=== PATIENT | female | born 2000 | race Caucasian/White ===

== ENCOUNTER 2024-02-04 07:26 | Inpatient (IN) ==
[2024-02-04 08:54] LABS: Amphetamines+Metham, Urine Neg (Neg); Barbiturates, Urine Neg (Neg); Benzodiazepine, Urine Neg (Neg); Cocaine, Urine Neg (Neg); Fentanyl, Urine Neg (Neg); MDMA (Ecstacy), Urine Neg (Neg); Marijuana, Urine Neg (Neg); Methadone, Urine Neg (Neg); Opiate, Urine Neg (Neg); Phencyclidine, Urine Neg (Neg)
--- NOTE | 2024-02-04 10:23 | History & Physical Report ---
Date of Service February 04, 2024 Assessment & Plan (1) Prolong rupt membran-unspec: Plan: Observe the patient for any cervical change indicating active labor. History of Present Illness Chief Complaint: Intrauterine 38 weeks 5 days gestation. Gush of amniotic fluid. Primary Care Provider: NO PCP Patient is a 23-year-old 2 para 1. Patient is in good general health. Patient is on no chronic pills or medications. She does use medical marijuana. has been well dated with a first trimester ultrasound. due date is 02/13/2024. She has had no problems. First child was delivered 2021 female 7 pounds 10 ounces. She delivered on her due date at 40 w eeks. Spontaneous vaginal delivery no problems. Patient states last time she was checked at [place] she was 3 cm dilated. Patient also states that she progressed rapidly with her first . Patient states she began having contractions about 5 AM the day of admissions. About 6 AM she noticed what she thought was a gush of fluid. Called the hospital was told to come to maternity for evaluation. Patient does not have any vaginal bleeding. Allergies Allergy/AdvReac Type Severity Reaction Status Date / Time No Known Allergies Allergy Unverified 02/04/24 07:44 Home Medications Medication Instructions Recorded Confirmed Type famotidine 20 mg tablet (Pepcid) 20 mg PO DAILY 02/04/24 02/04/24 History vits no.124-ferrous fum 1 tab PO DAILY 02/04/24 02/04/24 History 27 mg iron-folic acid 800 mcg tablet ( Vitamin) Past Med/Surg History Problem List (Updated 02/04/24 @ 10:22 by Johnson Arredondo MD) Prolong rupt membran-unspec Medical History (Updated 02/04/24 @ 10:22 by Johnson Arredondo MD) Depression Anxiety Asthma Surgical History (Updated 02/04/24 @ 07:44 by Bridgette Carpenter RN) [place] teeth removed Social History Smoking Status: Former smoker Hx Alcohol Use: Yes (last drank a "sip" on ) Alcohol type: wine Hx Substance Use: Yes Last Used Substance: Days (ago) Last Used Substance Other:: 02/02/24 Preferred Language: Ivorian Communication Ability: Effective 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 Heart had a regular rhythm S1 and S2 were normal. Lungs are clear to auscultation percussion. Trachea was midline. There was no cervical adenopathy. No calf tenderness noted. Abdomen was soft nontender consistent with a term size . Pelvic exam cervix was posterior 4 cm dilated. Vertex presentation. 60% effaced and soft. -1 to -2 station. Results & Data Results & Data Vital Signs (Past 12 Hours) Vital Signs Temp Pulse Resp BP 02/04/24 09:30 18 02/04/24 09:30 18 02/04/24 09:00 20 02/04/24 09:00 20 02/04/24 08:00 20 02/04/24 08:00 36.6 C 20 02/04/24 07:46 36.6 C 20 02/04/24 07:43 87 128/71
[2024-02-04] MEDS ORDERED: LIDOCAINE 1% LOCAL 20 ML VIAL INFIL PRN (14:11)
[2024-02-04] MEDS ORDERED: ACETAMINOPHEN 500 MG TAB PO PRN (14:11)
[2024-02-04] MEDS ORDERED: OXYTOCIN 30 UNITS/NSS 30 UNITS/500 ML BAG IV PRN ×2 (14:11→23:21)
[2024-02-04] MEDS ORDERED: CALCIUM CARBONATE 500 MG CHEWABLE TAB PO PRN (14:11)
[2024-02-04 14:50] LABS: Hematocrit (blood only) 33.6 % (37.0-47.0); Hemoglobin 11.4 g/dl (12.0-16.0); Mean Corpuscular Hemoglobin 30.2 pg (25.0-34.0); Mean Corpuscular Hgb Conc 33.9 g/dL (32.0-36.0); Mean Corpuscular Volume 89.1 fL (80.0-100.0); Platelet Count 244 K/uL (130-400); RDW Coefficient of Variation 14.1 % (11.5-14.5); RDW Standard Deviation 45.3 fL (36.4-46.3); Red Blood Count 3.77 M/uL (4.20-5.40); White Blood Count 14.26 K/ul (4.8-10.8)
[2024-02-04] MEDS: OXYTOCIN 30 UNITS/NSS 30 UNITS/500 ML BAG IV PRN (15:09)
[2024-02-04] MEDS: LACTATED RINGER'S 1,000 ML IV SCH (15:11)
[2024-02-04] MEDS: fentANYL 2 MCG/ML BUPIVacaine 0.125%-NSS 100ML BAG ONE (19:21)
[2024-02-04] MEDS: BUPIVACAINE 0.25% PF 30 ML VIAL ONE (19:22)
[2024-02-04] MEDS: LIDOCAINE 2%/EPINEPHRINE 1:200,000 20 ML PF ONE (19:22)
--- NOTE | 2024-02-04 19:27 | Anesthesiology Consultation ---
Date of Service February 04, 2024 Assessment & Plan Chart Review Chart Review: Acceptable Risk for Labor Epidural Consults Requested none History Height/Weight Height: 5 ft 6 in Weight: 92.533 kg Allergies Allergy/AdvReac Type Severity Reaction Status Date / Time No Known Allergies Allergy Unverified 02/04/24 07:44 Medications Home Medications Medication Instructions Recorded Confirmed Last Taken famotidine 20 mg tablet (Pepcid) 20 mg PO DAILY 02/04/24 02/04/24 Unknown vits no.124-ferrous fum 1 tab PO DAILY 02/04/24 02/04/24 Unknown 27 mg iron-folic acid 800 mcg tablet ( Vitamin) Active Medications Generic Name Dose Route Start Last Admin Trade Name Freq PRN Reason Stop Dose Admin Oxytocin 30 units in 500 mls @ 8 mls/hr 02/04/24 14:13 02/04/24 16:50 Pitocin 30 Units/Nss IV 02/06/24 14:12 0.48 units/hr .Q24H PRN 8 mls/hr Labor Induction/Augmentation Titration Protocol 0.48 UNITS/HR Lactated Ringer's 1,000 mls @ 50 mls/hr 02/04/24 15:15 02/04/24 15:11 Lr IV 02/05/24 15:14 50 mls/hr .Q20H SALINA Administration Past Medical History Medical History (Updated 02/04/24 @ 10:22 by Johnson Arredondo MD) Depression Anxiety Asthma Past Surgical History Surgical History (Updated 02/04/24 @ 07:44 by Bridgette Carpenter RN) [place] teeth removed Social History Smoking Status: Former smoker Hx Alcohol Use: Yes (last drank a "sip" on Thanksgiving) Alcohol type: wine Alcohol Intake Frequency Comment: wine on Thanksgiving Hx Substance Use: Yes substance use type: marijuana Last Used Substance: Days (ago) Last Used Substance Other:: 02/02/24 Physical Exam Vital Signs Last Vital Signs Temp 36.6 C 02/04/24 12:54 Pulse 111 H 02/04/24 19:24 Resp 20 02/04/24 18:30 BP 107/57 L 02/04/24 19:24 Pulse Ox 99 02/04/24 19:23 Testing Laboratory Results 02/04/24 14:30
[2024-02-04] MEDS ORDERED: NALOXONE HCL 1 MG in SODIUM CHLORIDE 0.9% 1,000 ML IV PRN (19:29)
[2024-02-04] MEDS ORDERED: fentaNYL citrate PF 100 MCG/2 ML VIAL EPI PRN (19:29)
[2024-02-04] MEDS ORDERED: LIDOCAINE 2% MPF LOCAL 5 ML VIAL EPI PRN (19:29)
[2024-02-04] MEDS ORDERED: ROPIVACAINE 0.5% PF 5 MG/ML 20 ML VIAL EPI PRN (19:29)
[2024-02-04] MEDS ORDERED: diphenhydrAMINE 50 MG/ML VIAL IV PRN (19:29)
[2024-02-04] MEDS ORDERED: ePHEDrine sulfate 50 MG/ML AMP IV PRN (19:29)
[2024-02-04] MEDS ORDERED: NALBUPHINE HCL INJ 10 MG/ML AMP IV PRN (19:29)
[2024-02-04] MEDS ORDERED: NALOXONE HCL 0.4 MG/1 ML VIAL/CARP IV PRN (19:29)
[2024-02-04] MEDS ORDERED: fentANYL 2 MCG/ML BUPIVacaine 0.125%-NSS 100ML BAG EPI PRN (19:29)
[2024-02-04] MEDS ORDERED: BUPIVACAINE 0.25% PF 30 ML VIAL EPI PRN (19:29)
[2024-02-04] MEDS ORDERED: SODIUM CHLORIDE 0.9% PF INJ 10 ML VIAL EPI PRN (19:29)
[2024-02-04] MEDS: BUPIVACAINE 0.25% PF 30 ML VIAL EPI STA (20:24)
[2024-02-04] MEDS: fentaNYL citrate PF 100 MCG/2 ML VIAL ONE (20:24)
[2024-02-04] MEDS: SODIUM CHLORIDE 0.9% PF INJ 10 ML VIAL EPI STA (20:26)
[2024-02-04] MEDS: SODIUM CHLORIDE 0.9% PF INJ 10 ML VIAL ONE (20:26)
[2024-02-04] MEDS: fentaNYL citrate PF 100 MCG/2 ML VIAL EPI STA (20:26)
[2024-02-04] MEDS: LIDOCAINE 2%/EPINEPHRINE 1:200,000 20 ML PF EPI STA (20:26)
[2024-02-04] MEDS: METHYLERGONOVINE MALEATE 0.2 MG/ML AMP IM ONE (23:16)
[2024-02-04] MEDS ORDERED: HYDROCORTISONE ACETATE 25 MG SUPP PR PRN (23:21)
[2024-02-04] MEDS ORDERED: BENZOCAINE 20% SPRY 85 APPLN/85 GM CAN EXT PRN (23:21)
[2024-02-04] MEDS ORDERED: oxyCODONE/ACETAMINOPHEN 5mg/325mg TAB PO PRN (23:21)
[2024-02-04] MEDS ORDERED: ACETAMINOPHEN W/CODEINE #3 1 TAB PO PRN (23:21)
[2024-02-04] MEDS ORDERED: DIPHTHER/TETAN/PERTUS Vaccine (Tdap, Adol/Adult) 0.5mL IM ONE (23:21)
--- NOTE | 2024-02-04 23:24 | Delivery Summary ---
Vaginal Delivery Summary Date of Service February 04, 2024 Vaginal Delivery Summary Patient's been followed at [place] for care. Patient is a 4 para 1. Patient had an uneventful course. Patient states she had a gush of fluid at home. Along with uterine contractions. She was checked for ruptured membranes AmniSure was negative. But she was having painful contractions. Also her initial exam was 4 cm. She stated she had been checked several days prior at [place] she was 3 cm. We let her walk the halls. For several hours. Her next exam she was 5+ centimeters with bulging membranes. At this point we declared her in labor. She was 38 weeks 5 days gestation. We started to augment her labor with IV Pitocin. Eventually she got to be about 6 cm. At which point she received epidural for pain control. Membranes were ruptured surgically fluid was clear. She had good regular strong contractions. Went to full dilatation. And then about 20 minutes pushed out a live male via direct occiput anterior position. She had an intact perineum. Shoulders were delivered without difficulty. Cord was allowed to pulse for 1 full minute. Then clamped and cut. Cord blood was taken. With IV Pitocin running along with IM Methergine. The placenta was removed intact. Inspection of the perineum revealed no lacerations. Uterus contracted well with some bimanual massage. Quantitative blood loss was 50 mL. Patient tolerated delivery well.
[2024-02-04] MEDS: ePHEDrine sulfate 50 MG/ML AMP ONE (23:42)
[2024-02-05] MEDS: IBUPROFEN 600 MG TAB PO PRN (00:07)
[2024-02-05] MEDS: ACETAMINOPHEN 325 MG TAB PO PRN (00:07)
--- NOTE | 2024-02-05 00:53 | Anesthesia Procedure Note ---
Date of Service February 05, 2024 Anesthesia Post Epidural Note Vital Signs Vital Signs: Temp Pulse Resp BP Pulse Ox 36.4 C L 97 H 20 125/72 96 02/04/24 21:05 02/05/24 00:50 02/05/24 00:20 02/05/24 00:50 02/04/24 23:48 Pain Intensity Lower Back: Pain Intensity: 4 Notes Mental Status: alert / awake / arousable Nausea / Vomiting: adequately controlled Pain: adequately controlled Airway Patency, RR, SpO2: stable & adequate BP & HR: stable & adequate Hydration State: stable & adequate Neuraxial Anesthesia: was administered and sensory block is resolving Anesthetic Complications: no major complications apparent and Pt Satisfied with anesthetic care Epidural: Removed without complications and With tip intact
[2024-02-05 06:22] LABS: Hematocrit (blood only) 35.3 % (37.0-47.0); Hemoglobin 11.8 g/dl (12.0-16.0); Mean Corpuscular Hemoglobin 29.8 pg (25.0-34.0); Mean Corpuscular Hgb Conc 33.4 g/dL (32.0-36.0); Mean Corpuscular Volume 89.1 fL (80.0-100.0); Mean Platelet Volume 10.2 fL (9.4-12.4); Platelet Count 235 K/uL (130-400); RDW Coefficient of Variation 13.9 % (11.5-14.5); RDW Standard Deviation 45.3 fL (36.4-46.3); Red Blood Count 3.96 M/uL (4.20-5.40); White Blood Count 15.81 K/ul (4.8-10.8)
[2024-02-05] MEDS: DOCUSATE SODIUM 100 MG CAP PO SCH (07:56)
[2024-02-05] MEDS: PRENATAL VITAMIN 1 TAB PO SCH (07:56)
--- NOTE | 2024-02-05 08:49 | Obstetrical Progress Note ---
Date of Service February 05, 2024 Assessment & Plan (1) Prolong rupt membran-unspec: Plan s/p vaginal delivery pt clinically and hemodynamically stable discharge plan tomorrow routine care Subjective Ambulation: ambulating normally Diet Tolerance:: regular diet Review of Systems All systems reviewed & are unremarkable except as noted in HPI & below Physical Exam Constitutional WD/WN, vitals as above Respiratory normal respiratory effort, lungs clear to auscultation Cardiovascular RRR, no murmur, no edema Gastrointestinal (Abdomen) normal bowel sounds, soft, nontender, no hepatosplenomegaly Genitourinary deferred Results & Data Vital Signs (Past 12 Hours) Vital Signs Temp Pulse Pulse Resp BP BP Pulse Ox 02/05/24 04:00 36.7 C 84 16 121/74 96 02/05/24 01:35 36.6 C 89 18 134/81 94 02/05/24 01:20 36.9 C 20 02/05/24 01:20 98 H 129/60 02/05/24 01:05 90 141/82 H 02/05/24 00:50 20 02/05/24 00:50 97 H 125/72 02/05/24 00:35 97 H 132/75 02/05/24 00:22 98 H 129/71 02/05/24 00:20 20 02/05/24 00:05 20 02/05/24 00:05 86 126/84 02/04/24 23:50 20 02/04/24 23:50 96 H 118/71 02/04/24 23:48 103 H 96 02/04/24 23:43 98 H 98 02/04/24 23:38 99 H 99 02/04/24 23:35 18 02/04/24 23:35 108 H 134/71 02/04/24 23:33 99 H 98 02/04/24 23:28 105 H 97 02/04/24 23:23 103 H 97 02/04/24 23:20 20 02/04/24 23:19 112 H 142/76 H 02/04/24 23:18 108 H 98 02/04/24 23:17 114 H 94 02/04/24 23:13 117 H 100 02/04/24 23:08 113 H 100 02/04/24 23:03 100 02/04/24 23:03 99 H 02/04/24 23:03 104 H 156/91 H 02/04/24 22:58 107 H 99 02/04/24 22:53 104 H 99 02/04/24 22:48 95 H 99 02/04/24 22:46 94 H 161/78 H 02/04/24 22:43 99 H 99 02/04/24 22:40 88 115/59 L 02/04/24 22:38 85 99 02/04/24 22:35 88 106/54 L 02/04/24 22:33 91 H 99 02/04/24 22:31 84 114/62 02/04/24 22:28 89 99 02/04/24 22:25 92 H 112/55 L 02/04/24 22:23 85 98 02/04/24 22:20 80 111/55 L 02/04/24 22:18 91 H 100 02/04/24 22:15 91 H 111/65 02/04/24 22:13 94 H 98 02/04/24 22:10 93 H 125/74 02/04/24 22:08 98 H 98 02/04/24 22:07 93 H 123/74 02/04/24 22:03 85 99 02/04/24 22:01 98 H 135/73 02/04/24 21:58 96 H 98 02/04/24 21:56 90 127/68 02/04/24 21:53 94 H 99 02/04/24 21:50 100 H 122/76 02/04/24 21:48 87 98 02/04/24 21:43 87 100 02/04/24 21:40 110 H 116/68 02/04/24 21:38 90 99 02/04/24 21:37 92 H 115/67 02/04/24 21:33 91 H 96 02/04/24 21:30 94 H 132/78 02/04/24 21:28 95 H 96 02/04/24 21:26 91 H 132/80 02/04/24 21:23 91 H 96 02/04/24 21:21 90 138/89 02/04/24 21:18 95 H 97 02/04/24 21:13 87 98 02/04/24 21:10 90 126/85 02/04/24 21:08 88 97 02/04/24 21:05 36.4 C L 90 124/80 02/04/24 21:03 93 H 98 02/04/24 21:00 88 95/52 L 02/04/24 20:58 92 H 99 02/04/24 20:57 81 97/52 L 02/04/24 20:53 95 H 99 02/04/24 20:50 94 H 81/49 L 02/04/24 20:48 83 99 02/04/24 20:47 93 H 87/50 L O2 Del Method 02/05/24 04:00 Room Air 02/05/24 01:35 Room Air 02/05/24 01:20 02/05/24 01:20 02/05/24 01:05 02/05/24 00:50 02/05/24 00:50 02/05/24 00:35 02/05/24 00:22 02/05/24 00:20 02/05/24 00:05 02/05/24 00:05 02/04/24 23:50 02/04/24 23:50 02/04/24 23:48 02/04/24 23:43 02/04/24 23:38 02/04/24 23:35 02/04/24 23:35 02/04/24 23:33 02/04/24 23:28 02/04/24 23:23 02/04/24 23:20 02/04/24 23:19 02/04/24 23:18 02/04/24 23:17 02/04/24 23:13 02/04/24 23:08 02/04/24 23:03 02/04/24 23:03 02/04/24 23:03 02/04/24 22:58 02/04/24 22:53 02/04/24 22:48 02/04/24 22:46 02/04/24 22:43 02/04/24 22:40 02/04/24 22:38 02/04/24 22:35 02/04/24 22:33 02/04/24 22:31 02/04/24 22:28 02/04/24 22:25 02/04/24 22:23 02/04/24 22:20 02/04/24 22:18 02/04/24 22:15 02/04/24 22:13 02/04/24 22:10 02/04/24 22:08 02/04/24 22:07 02/04/24 22:03 02/04/24 22:01 02/04/24 21:58 02/04/24 21:56 02/04/24 21:53 02/04/24 21:50 02/04/24 21:48 02/04/24 21:43 02/04/24 21:40 02/04/24 21:38 02/04/24 21:37 02/04/24 21:33 02/04/24 21:30 02/04/24 21:28 02/04/24 21:26 02/04/24 21:23 02/04/24 21:21 02/04/24 21:18 02/04/24 21:13 02/04/24 21:10 02/04/24 21:08 02/04/24 21:05 02/04/24 21:03 02/04/24 21:00 02/04/24 20:58 02/04/24 20:57 02/04/24 20:53 02/04/24 20:50 02/04/24 20:48 02/04/24 20:47 Supervising Physician Co-Signing Physician Notes Onesimo Inman MD
[2024-02-05 17:36] VITALS: O2SAT 96
[2024-02-05] MEDS: bisacodyL 5 MG TABEC PO SCH (20:42)
[2024-02-06] MEDS ORDERED: bisacodyL 10 MG SUPP PR PRN
[2024-02-06 00:49] VITALS: RESP 16
[2024-02-06 06:21] LABS: Hematocrit (blood only) 30.8 % (37.0-47.0); Hemoglobin 10.2 g/dl (12.0-16.0)
--- NOTE | 2024-02-06 08:52 | Obstetrical Progress Note ---
Date of Service February 06, 2024 Assessment & Plan Admission and Anticipated Discharge Date Admission Date: February 04, 2024 Subjective Patient is seen and examined. She feels well, no complaints. Ambulating without dizziness Voiding without difficulty Tolerating regular diet with out N&V Bleeding is minimal No fever/ chills/ CP/ SOB/ N&V/ Leg pain Breast feeding / pumping without problems Lab Results 02/04/24 02/04/24 02/04/24 Range/Units 07:50 08:52 14:30 WBC 14.26 H (4.8-10.8) K/ul RBC 3.77 L (4.20-5.40) M/uL Hgb 11.4 L (12.0-16.0) g/dl Hct 33.6 L (37.0-47.0) % MCV 89.1 (80.0-100.0) fL MCH 30.2 (25.0-34.0) pg MCHC 33.9 (32.0-36.0) g/dL RDW Std Deviation 45.3 (36.4-46.3) fL RDW Coeff of Adrián 14.1 (11.5-14.5) % Plt Count 244 (130-400) K/uL MPV 10.0 (9.4-12.4) fL Amniotic Protein NEG Urine Opiates Screen Neg (Neg) Ur Methadone, Qual Neg (Neg) Urine Fentanyl Screen Neg (Neg) Urine Barbiturates Neg (Neg) Ur Phencyclidine (PCP) Neg (Neg) U Amphetamin/Meth Scrn Neg (Neg) MDMA (Ecstasy) Screen Neg (Neg) U Benzodiazepines Scrn Neg (Neg) Ur Cocaine Metabolite Neg (Neg) U Marijuana (THC) Screen Neg (Neg) Treponema pallidum Ab Negative (Negative) 02/05/24 02/06/24 Range/Units 05:53 05:55 WBC 15.81 H (4.8-10.8) K/ul RBC 3.96 L (4.20-5.40) M/uL Hgb 11.8 L 10.2 L (12.0-16.0) g/dl Hct 35.3 L 30.8 L (37.0-47.0) % MCV 89.1 (80.0-100.0) fL MCH 29.8 (25.0-34.0) pg MCHC 33.4 (32.0-36.0) g/dL RDW Std Deviation 45.3 (36.4-46.3) fL RDW Coeff of Adrián 13.9 (11.5-14.5) % Plt Count 235 (130-400) K/uL MPV 10.2 (9.4-12.4) fL Amniotic Protein Urine Opiates Screen (Neg) Ur Methadone, Qual (Neg) Urine Fentanyl Screen (Neg) Urine Barbiturates (Neg) Ur Phencyclidine (PCP) (Neg) U Amphetamin/Meth Scrn (Neg) MDMA (Ecstasy) Screen (Neg) U Benzodiazepines Scrn (Neg) Ur Cocaine Metabolite (Neg) U Marijuana (THC) Screen (Neg) Treponema pallidum Ab (Negative) Vital Signs Temp Pulse Resp BP Pulse Ox O2 Del Method 02/06/24 00:15 36.6 C 93 H 16 116/77 Room Air 02/05/24 20:20 36.5 C 101 H 18 117/74 Room Air 02/05/24 16:05 36.5 C 92 H 16 109/74 96 Room Air 02/05/24 12:02 36.5 C 95 H 16 138/83 97 Room Air PE: General: Alert, orientedx3, NAD Abd: soft, NT, fundus firm, below Umbilicus Perineum intact, Lochia rubra minimal Ext; NT, no edema AP: 23 yo s/p , ppd# 2 VSS Afebrile doing well Continue routine care All questions were answered Discussed contraception, she scheduled tubal ligation at [place]. Discussed alternative reversible options, she wants to have Depo provera today before d/c D/C home Results & Data Vital Signs (Past 12 Hours) Vital Signs Temp Pulse Resp BP O2 Del Method 02/06/24 00:15 36.6 C 93 H 16 116/77 Room Air
[2024-02-06 09:01] LABS: Basophils # (auto) 0.03 K/uL (0.00-0.20); Basophils % (auto) 0.2 %; Eosinophils # (auto) 0.07 K/uL (0.00-0.50); Eosinophils % (auto) 0.6 %; Hematocrit (blood only) 32.6 % (37.0-47.0); Hemoglobin 10.8 g/dl (12.0-16.0); Immature Granulocytes # (auto) 0.06 K/uL (0.01-0.20); Immature Granulocytes % (auto) 0.5 %; Lymphocytes # (auto) 2.54 K/uL (1.20-3.40); Lymphocytes % (auto) 20.9 %; Mean Corpuscular Hemoglobin 30.3 pg (25.0-34.0); Mean Corpuscular Hgb Conc 33.1 g/dL (32.0-36.0); Mean Corpuscular Volume 91.3 fL (80.0-100.0); Monocytes # (auto) 0.82 K/uL (0.11-0.59); Monocytes % (auto) 6.7 %; Neutrophils # (auto) 8.66 K/uL (1.40-6.50); Neutrophils % (auto) 71.1 %; Platelet Count 244 K/uL (130-400); RDW Coefficient of Variation 14.4 % (11.5-14.5); RDW Standard Deviation 47.8 fL (36.4-46.3); Red Blood Count 3.57 M/uL (4.20-5.40); White Blood Count 12.18 K/ul (4.8-10.8)
[2024-02-06 09:34] VITALS: BP 115/78; PULSE 82; TEMP 97.5
== END 2024-02-06 12:45 | disposition home health service (06) | DRG 807 ==
LOC: OPB 07:26 → 4S1 07:39 → 4E2 02-05 01:52